=== PATIENT | male | born 1975 | race Caucasian/White ===

== ENCOUNTER 2020-02-27 21:45 | Emergency (ER) | payer BC ==
[~2020-02-27] VITALS: Ht 165.1 cm; Wt 100.2 kg
[2020-02-27 21:53] VITALS: BP 120/68
--- NOTE | 2020-02-27 21:56 | NUR ---
PT TAKEN TO BED 5
[2020-02-27] MEDS ORDERED: LIDOCAINE/EPI 1% 1:100000 20 ML VIAL INJ ONE (22:00)
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
--- NOTE | 2020-02-27 22:10 | NUR ---
Dr. Frias examining patient.
[2020-02-27] MEDS ORDERED: BACITRACIN OINT 500 UNITS/GM PKT TP ONE (22:30)
[2020-02-27 23:02] VITALS: BP 120/68
--- NOTE | 2020-02-27 23:03 | NUR ---
Patient discharged BY DR. GOTTI with v/s stable. Written and verbal after care instructions given and explained BY DR. GOTTI. Patient alert, oriented and verbalized understanding of instructions. Ambulatory with steady gait. All questions addressed BY DR. GOTTI prior to discharge. ID band removed. Patient advised to follow up with PMD. Rx of given. Patient educated on indication of medication including possible reaction and side effects. Opportunity to ask questions provided and answered.
== END 2020-02-27 23:03 | disposition home or self-care (01) ==
LOC: MED 21:45
DX: S01.81XA Laceration without foreign body of other part of head, initial encounter (principal); W01.0XXA Fall on same level from slipping, tripping and stumbling without subsequent striking against object, initial encounter; Y93.89 Activity, other specified; Y92.89 Other specified places as the place of occurrence of the external cause; Y99.8 Other external cause status
CPT/HCPCS: 12011; 90471; 90715; 99283; J2001